=== PATIENT | female | born 1985 | race Caucasian/White ===

== ENCOUNTER 2022-05-04 10:26 | Outpatient (CLI) | payer BC, MEDICAID, SELFPAY ==
--- NOTE | 2022-05-04 10:46 | ECG_ITS ---
Measurements Intervals [place] Rate: 67 P: 46 PA: 176 QRS: 51 QRSD: 86 T: 16 QT: 382 QTc: 403 Interpretive Statements SINUS RHYTHM DELAYED PRECORDIAL R/S TRANSITION BASELINE ARTIFACT- II, III, AVL, AVF, V3-V5 BORDERLINE ECG NO PREVIOUS ECG AVAILABLE FOR COMPARISON Electronically Signed On 05-04-2022 13:51:00 CDT by Lorenzo Linares D.O.
== END 2022-05-04 10:27 | disposition home or self-care (01) ==
LOC: ANHSURGERY 10:37
PROVIDERS: PCP Internal Medicine; Visit Provider Orthopaedic Surgery
DX: Z72.0 Tobacco use (principal); Z01.818 Encounter for other preprocedural examination
CPT/HCPCS: 93005

== ENCOUNTER 2022-05-06 01:09 | Day surgery (SDC) | payer BC, MEDICAID, SELFPAY ==
[2022-04-30 10:23] VITALS: BMI 32.2
--- NOTE | 2022-04-30 10:33 | PC.NURSE ---
Report to the Outpatient Waiting Room, entrance under the green pavilion located off [facility], at time 0830_ on date 05/06/22_. OR Time: _1030___. Time changes happen often and if your time is changed the preop area will call you the afternoon before. - You and your visitor will be asked to self-screen and do not enter if you have any COVID symptoms. - Only one visitor and NO children visitors are allowed at this time. - The patient visitor is requested to leave or wait in car when not with patient due to restrictions. - A mask is required within the hospital. Patients may have clear liquids (water, carbonated beverages, clear teas, apple juice) until 3 hours prior to surgery with a maximum of 20 ounces. - No food from midnight until time of surgery - Infants may have breast milk until 4 hours before surgery, infant formula 6 hours prior to surgery. - Children will be allowed to drink immediately following surgery. If applicable, please bring a bottle or sippy cup to assist with drinking. Juice, water, soda, and popsicles are readily available. For infants on formula, please bring formula the day of surgery. Pacifiers are allowed. Take the following medications with a SIP of water the morning of surgery: _INHALER IF NEEDED Medications to discontinue per physician NONE Date to take last dose NONE Please no make-up, nail bulgarian, hairspray, perfume, deodorant, or body powder the day of surgery. No jewelry (including any body piercings) or valuables the day of surgery, leave them at home. Please take a shower or bath the night before, or the morning of, surgery with an antibacterial soap. Wear comfortable, loose fitting clothing. Children are encouraged to wear pajamas. - Jewelry must be removed prior to entering the operating room. Rings and piercings that are not removed may be cut off. - The hospital will not accept responsibility for valuables. - Please leave all valuables, including medications, at home the day of surgery. If you are going home after surgery, a licensed racecar driver must drive you home. - NO public transportation without another adult. - We recommend that an adult stay with you for 24 hours following discharge. - We also recommend that you do not drive, make important decision, drink alcoholic beverages, or take any drugs that were not prescribed by your health care provider for at least 24 hours after your discharge time. For Pediatric surgeries, we recommend two adults accompany the child home (only one inside the building at this time). Follow any additional instructions given to you from your surgeon. If you or anyone in your household have experienced Covid symptoms in the past week, please notify your surgeon or the nurse liaison at the phone number below for possible testing. Telephone instructions given to _PATIENT___and asked if any additional questions and then verbalized understanding. Patient advised to call surgeon office or pre surgery nurse liaison [phone] if any additional questions.
--- NOTE | 2022-05-04 13:13 | PM.IMHP ---
H&P: HPI History of Present Illness Date/Time: 05/04/22 13:13 Chief Complaint: chief complaint is left 1st dorsal compartment pain due to de Quervain tenosynovitis left wrist. The patient is a 36-year-old female who presents with an ongoing chronic history of pain in the left 1st dorsal compartment of the wrist. Patient has pain with gripping or grasping or trying to do anything heavy repetitive with the arm. She has pain and tenderness in the 1st dorsal compartment she does significant heavy lifting and repetitive motion at her job which aggravates her symptoms. Denies any loss of motion no numbness or tingling no weakness but has significant pain with almost any activity. X-rays are unremarkable clearly she however has de Quervain tenosynovitis unrelieved by conservative measures including oral anti-inflammatories cortisone injection and bracing. Patient at this point is discussed further treatment options in detail Dr. Lorenzo she has failed conservative measures and would like to proceed with a surgical release of the 1st dorsal compartment of the left wrist. Review of Systems Review of Systems: Ten point review of systems otherwise negative PMFSH Social History Social History Smoking packs per day: 1 Smoking cigarettes per day: 20.0 Years smoked: 20 Smoking pack-years: 20.00 Smoking status: Current every day smoker Tobacco type: cigarettes Alcohol intake: current Alcohol use details: 3-4 PER YEAR Substance use: never Meds Home Medications and Allergies Home Medications Medication Instructions Recorded Confirmed Type albuterol sulfate 90 mcg/actuation 2 puff inhalation PRN PRN 04/30/22 04/30/22 History aerosol inhaler Shortness Of Breath Allergies Allergy/AdvReac Type Severity Reaction Status Date / Time amoxicillin [From Augmentin] Allergy Hives Verified 04/30/22 10:21 clavulanic acid Allergy Hives Verified 04/30/22 10:21 [From Augmentin] Fish Containing Products Allergy Hives Verified 04/30/22 10:19 latex Allergy Rash Verified 04/30/22 10:18 menthol [From Icy Hot] Allergy Redness of Verified 04/30/22 10:22 Skin methyl salicylate Allergy Redness of Verified 04/30/22 10:22 [From Icy Hot] Skin Exam Narrative: on exam the patient is noted be a well-developed well-nourished female in no acute distress alert oriented x3. Normal mood and affect. The patient is noted to have hearing and vision that are intact. Respiratory is good no distress. Pulse regular rate and rhythm. Abdomen benign. Extremities showed the patient's left wrist to be exquisitely tender the 1st dorsal compartment with a positive Steve's test. Full range of motion hand wrist and fingers are noted has a little puffiness in the 1st dorsal compartment at the radial styloid. Strength is 5 5 except limited by her symptoms. No neurovascular deficits are noted. Skin is intact without rashes or lesions. Central nervous system within normal limits. X-rays are unremarkable. Assessment and Plan Assessment and plan (1) De Quervain's tenosynovitis, left: Code(s): M65.4 - Radial styloid tenosynovitis [de Quervain] Status: Acute Assessment and Plan: by history and exam the patient is noted to have chronic de Quervain tenosynovitis left wrist. The patient has discussed risks benefits limitations and alternatives to surgery in great detail with Dr. Lorenzo, the patient is now ready to proceed with a surgical release of the 1st dorsal compartment of the left wrist. The patient is scheduled to undergo surgery 05/06/2022 at [facility] with Dr. Lorenzo. The patient voiced understanding and agrees with the above plan.
[2022-05-06] VITALS (9 sets, daily range): BP systolic 106–135; BP diastolic 64–102; PULSE 60–82; RESP 12–18; TEMP 36.2–36.6; O2SAT 93–98
--- NOTE | 2022-05-06 07:11 | WPDHPUPDATE1 ---
History and Physical Update Update Date/Time: 05/06/22 07:11 History and Physical has been reviewed, including an updated exam of the patient. There are NO changes in the patient's condition. Risks, benefits, and alternatives have been discussed and questions answered. Patient agrees to proceed with procedure.
[2022-05-06] MEDS: ACETAMINOPHEN 500 MG TABLET 1000 MG PO (09:28)
[2022-05-06] MEDS: LACTATED RINGERS 1,000 ML 30 ML IV CONT ×2 (09:28→11:43)
[2022-05-06] MEDS: KETOROLAC 15 MG/ML VIAL (*BKC) IV PUSH (09:28)
--- NOTE | 2022-05-06 09:38 | WPDANESEPPF ---
Anes - Initial Pre Proc Eval Procedure: Operation Date: 05/06/22 10:30 Proposed Procedures p Release Left Forearm First Dorsal Compartment - Golden Lorenzo MD Date/Time: 05/06/22 09:38 Surgeon: Golden Lorenzo MD Pre Op Diagnosis: left DeQuervains Patient Data Age: 36 Gender: F Height: 1.57 m Weight: 86.8 kg Last Vital Signs Temp 36.2 C L 05/06/22 09:07 Pulse 82 05/06/22 09:07 Resp 18 05/06/22 09:07 BP 135/102 H 05/06/22 09:07 Pulse Ox 98 05/06/22 09:07 Allergies Allergy/AdvReac Type Severity Reaction Status Date / Time amoxicillin [From Augmentin] Allergy Hives Verified 05/06/22 09:06 clavulanic acid Allergy Hives Verified 05/06/22 09:06 [From Augmentin] Fish Containing Products Allergy Hives Verified 05/06/22 09:06 latex Allergy Rash Verified 05/06/22 09:06 menthol [From Icy Hot] Allergy Redness of Verified 05/06/22 09:06 Skin methyl salicylate Allergy Redness of Verified 05/06/22 09:06 [From Icy Hot] Skin Home Medications Medication Instructions Recorded Confirmed Type albuterol sulfate 90 mcg/actuation 2 puff inhalation PRN PRN 04/30/22 05/06/22 History aerosol inhaler Shortness Of Breath Patient hx anesthesia problems: none Family hx anesthesia problems: none Results Review: All pre-operative results and documents have been reviewed as part of the pre-operative evaluation. [facility] Past Medical History Medical History (Updated 05/06/22 @ 09:38 by Abe Merino MD) Asthma Obesity Social History Social History Smoking packs per day: 1 Smoking cigarettes per day: 20.0 Years smoked: 20 Smoking pack-years: 20.00 Smoking status: Current every day smoker Tobacco type: cigarettes Alcohol intake: current Alcohol use details: 3-4 PER YEAR Substance use: never Living arrangements: alone Anes - Eval Final PreProcedure Day of Procedure 05/06/22 09:38 Patient weight: obese Heart: regular rate and rhythm Lungs: clear to auscultation Airway: Mallampati scale class II Neurological: alert and oriented Last oral intake: >/= 8 hours ASA classification: II Emergent: no Anesthetic plan: proceed Anesthesia type and monitoring: general LMA and standard monitoring Results Review: All pre-operative results and documents have been reviewed as part of the pre-operative evaluation. Informed Consent: The patient's anesthetic plan and its attendant risks and benefits were discussed with the patient/family/POA. Questions were solicited and answers provided to the satisfaction of the patient/family/POA.
[2022-05-06] MEDS: ceFAZolin 2 GM/D5W 50 ML 2 GM/50 ML BAG IVPB (10:06)
[2022-05-06] MEDS: LIDOCAINE HCL 1% PF 30 ML VIAL 10 ML INFILTRATE (10:43)
--- NOTE | 2022-05-06 11:00 | P.OP_ITS ---
Procedure Note - Detailed Date of Procedure 05/06/22 Pre-op Diagnosis left DeQuervains Post-op Diagnosis Same Procedure Performed Release 1st dorsal compartment LEFT Surgeon Golden Lorenzo MD Anesthesia General Indications Pain 1st dorsal compartment and failure of conservative treatment Description of Procedure Patient brought to operating room 7. A general anesthetic was administered. Sterile prep and drape of the left arm out. The site was identified and aligned a transverse incision made over the 1st dorsal compartment. Dissection bluntly carried down through the fascia the nataliia was identified and released under direct vision freeing both the abductor as well as extensor tendons. At this point is full excursion without any impingement. The wound was irrigated and closed with 2-0 Vicryl and 3-0 Prolene. Sterile dressing applied patient t olerated procedure well. Estimated Blood Loss 5 Condition Stable
== END 2022-05-06 12:36 | disposition home or self-care (01) ==
PROVIDERS: PCP Internal Medicine; Visit Provider Orthopaedic Surgery
PROC: (CPT 25000; principal; 2022-05-06 10:30)
DX: M65.4 Radial styloid tenosynovitis [de Quervain] (principal); F17.210 Nicotine dependence, cigarettes, uncomplicated; E66.9 Obesity, unspecified; Z68.35 Body mass index [BMI] 35.0-35.9, adult; Z79.51 Long term (current) use of inhaled steroids
CPT/HCPCS: 25000; A9270; J0690; J1100; J1885; J2250; J2405; J2704; J3010; J7120

== ENCOUNTER 2023-05-10 17:22 | Emergency (ER) | payer BC, MEDICAID, SELFPAY ==
--- NOTE | ~2023-05-10 | CT_ITS ---
EXAMINATION: CT abdomen pelvis w con DATE: 05/10/2023 21:21 INDICATION: abdominal pain, nausea TECHNIQUE: Computed tomography (CT) of the abdomen and pelvis was performed with 100 mL Omnipaque-350 intravenous contrast, in a late portal venous. Automated exposure control and iterative reconstructi on technique were employed. The dose-length product was 985.53 mGy-cm. COMPARISON: None. FINDINGS: Lower thorax: Unremarkable Liver: Normal. Biliary/Gallbladder: Gallbladder is normal. No bile duct dilation. Pancreas: No mass or duct dilation. Spleen: Normal. Adrenals: Nodular appearing left adrenal gland with indeterminate density 8 mm 12 masses. No follow-u p necessary for a sub-1 cm adrenal masses. Kidneys: No suspicious mass, obstructing stone, or hydronephrosis. GI tract: No small or large bowel dilation. Normal appendix. Mesentery/Peritoneum: No ascites, mass, or free air. Retroperitoneum: No mass. Pelvis: Pelvic organs are within normal limits. IUD in position. Soft Tissues: Soft tissues and body wall unremarkable. Bones: No acute osseous finding. IMPRESSION: No acute abdominal pelvic process detected. Indeterminate density left adrenal mass, probably benign, consider 12 month follow-up adrenal CT. Adr enal CT recommended now there is a history of cancer. Reviewed, dictated and finalized at location K. IMPRESSION: No acute abdominal pelvic process detected. Indeterminate density left adrenal mass, probably benign, consider 12 month fol low-up adrenal CT. Adrenal CT recommended now there is a history of cancer.
[2023-05-10 17:51] VITALS: BP 132/89; PULSE 82; RESP 17; TEMP 36.6; O2SAT 99
[2023-05-10 18:07] LABS: Basophils Absolute Auto 0.1 K/mm3 (0.0-0.1); Basophils Percent Auto 0.4 % (0.2-1.2); Eosinophils Absolute Auto 0.2 K/mm3 (0-0.3); Eosinophils Percent Auto 1.5 % (0-4.4); Hematocrit 42.5 % (37.0-47.0); Hemoglobin 13.6 g/dL (12.0-15.0); Immature Granulocyte Absolute 0.04 K/mm3 (0.00-0.031); Immature Granulocyte Percent A 0.3 % (0-0.5); Lymphocytes Absolute Auto 4.49 K/mm3 (0.9-3.2); Lymphocytes Percent Auto 38.8 % (18.3-44.2); Mean Corpuscular Hemoglobin 28.2 pg (26-34); Mean Corpuscular Volume 88.2 fl (80-100); Mean Platelet Volume 9.3 fl (7.4-10.4); Monocytes Absolute Auto 0.7 K/mm3 (0.1-0.6); Monocytes Percent Auto 5.6 % (2.6-8.5); Neutrophils Absolute Auto 6.2 K/mm3 (1.3-6.7); Neutrophils Percent Auto 53.4 % (45.5-73.1); Platelet Count Result 288 k/mm3 (150-375); Red Blood Count 4.82 M/mm3 (4.2-5.4); Red Cell Distribution Width 14.8 % (11.5-14.5); White Blood Count 11.6 K/mm3 (4.5-10.0)
[2023-05-10 18:25] LABS: Alanine Aminotransferase 20 U/L (6-35); Albumin Level 4.5 g/dL (3.5-5.1); Alkaline Phosphatase 83 U/L (38-126); Anion Gap 7 mmol/L (8-16); Aspartate Amino Transferase 20 U/L (14-36); Bilirubin,Total 0.4 mg/dL (0.2-1.3); Blood Urea Nitrogen 9 mg/dL (7-17); Calcium 8.9 mg/dL (8.4-10.2); Carbon Dioxide 24 mmol/L (22-30); Chloride 107 mmol/L (98-107); Estimated CRCL calculation 89 ml/min; Estimated Glomerular Filt Rate > 60; Glucose 80 mg/dL (65-110); Lipase 48 U/L (23-300); Potassium 3.8 mmol/L (3.4-5.0); Sodium 138 mmol/L (137-145)
[2023-05-10 18:31] LABS: Atypical Lymphocytes Present; Platelet Estimate Adequate (Adequate); Schistocytes None Seen (NORMAL)
[2023-05-10 19:59] VITALS: BP 152/92; PULSE 88; RESP 17; TEMP 36.5; O2SAT 98
[2023-05-10] MEDS: PROCHLORPERAZINE EDISYLATE 10 MG/2 ML VIAL IV PUSH (20:57)
[2023-05-10] MEDS: SODIUM CHLORIDE 0.9% IV 1,000 ML 999 ML IV CONT (20:57)
[2023-05-10 21:05] LABS: Appearance Urine Turbid (Clear); Bacteria Urine 4+ /hpf; Bilirubin Urine Negative (Negative); Blood Urine 3+ (Negative); Color Urine Dark Yellow (Yellow); Glucose Urine UA Negative (Negative); Ketones Urine Trace mg/dL (Negative); Leukocyte Esterase Ur 1+ LEU/UL (Negative); Need Manual Microscopic Reviewed; Nitrate Urine Negative (Negative); Protein Urine Trace mg/dL (Negative); Squamous Epithelial Cell Urine Many /hpf (Few); WBC Urine 21-50 /hpf
[2023-05-10 21:07] LABS: Add Urine Microscopic? YES
--- NOTE | 2023-05-10 21:29 | ED.GENADULT ---
HPI - General Adult General Chief complaint: Nausea/Vomiting/Diarrhea Stated complaint: nausea x 2 weeks Time Seen by Provider: 05/10/23 20:21 History of Present Illness HPI narrative: Patient 37-year-old female who presents the emergency department with chief complaint of nausea patient reports that about a month ago she started having episodes of continual nausea that was affecting her ability to eat patient reports she was seen in urgent care given a prescription for Zofran but that made her have constipation and patient discontinued it patient reports that about 2 weeks ago the nausea started again and today it was worse the patient reports no actual vomiting reports she had normal bowel movements reports that she does have an IUD patient reports that she has had no urinary symptoms reports that she has discomfort in the lower portions of her abdomen. Patient reports no prior surgical history of the abdomen Related Data Home Medications Medication Instructions Recorded Confirmed albuterol sulfate 90 mcg/actuation 2 puff inhalation PRN PRN 04/30/22 05/06/22 aerosol inhaler Shortness Of Breath Allergies Allergy/AdvReac Type Severity Reaction Status Date / Time amoxicillin [From Augmentin] Allergy Hives Verified 05/06/22 09:06 clavulanic acid Allergy Hives Verified 05/06/22 09:06 [From Augmentin] Fish Containing Products Allergy Hives Verified 05/06/22 09:06 latex Allergy Rash Verified 05/06/22 09:06 menthol [From Icy Hot] Allergy Redness of Verified 05/06/22 09:06 Skin methyl salicylate Allergy Redness of Verified 05/06/22 09:06 [From Icy Hot] Skin Review of Systems Review of Systems: A 10 system review of systems was completed on the patient and is negative except for what is stated in the HPI. Nursing and ancillary documentation was reviewed. PMFSH Past Medical History Medical History Asthma Obesity Social History Social History Smoking packs per day: 1 Smoking cigarettes per day: 20.0 Years smoked: 20 Smoking pack-years: 20.00 Smoking status: Current every day smoker Tobacco type: cigarettes Alcohol intake: current Alcohol use details: 3-4 PER YEAR Substance use: never Living arrangements: alone Exam Narrative: GENERAL: Well-appearing, well-nourished, and in no acute distress. HEAD: Normocephalic, atraumatic. EYES: PERRLA and EOMI. ENT: Nares clear, no rhinorrhea or epistaxis. Mucous membranes moist. NECK: Supple. CHEST: Clear to auscultation. No respiratory distress. HEART: Regular rate and rhythm. No murmur heard. Normal peripheral pulses. ABDOMEN: Soft, tender to palpation in the lower quadrants of the abdomen, nondistended, normal active bowel sounds. EXTREMITIES: Normal range of motion. No edema. SKIN: Warm, dry, no rash. NEURO: No focal deficits. Alert and oriented x3. PSYCH: Normal mood and affect. Course Vital Signs Vital signs: Vital Signs Temperature 36.6 C 05/10/23 17:51 Pulse Rate 82 05/10/23 17:51 Respiratory Rate 17 05/10/23 17:51 Blood Pressure 132/89 05/10/23 17:51 Pulse Oximetry 99 05/10/23 17:51 Oxygen Delivery Room Air 05/10/23 17:51 Temperature 36.5 C 05/10/23 19:59 Pulse Rate 88 05/10/23 19:59 Respiratory Rate 17 05/10/23 19:59 Blood Pressure 152/92 H 05/10/23 19:59 Pulse Oximetry 98 05/10/23 19:59 Oxygen Delivery Room Air 05/10/23 17:51 Medical Decision Making [facility] Narrative Medical decision making narrative: Differential diagnosis includes ectopic, UTI, intra-abdominal infection, diverticulitis, colitis, appendicitis, cholecystitis. Laboratory studies were obtained on the patient which showed a CBC with a white count of 11.6 CMP was within normal limits lipase was normal urinalysis showed 21-[address] scan showed no acute abno
[2023-05-10 22:52] VITALS: BP 136/79; PULSE 79; RESP 18; TEMP 36.8; O2SAT 100
== END 2023-05-10 22:53 | disposition home or self-care (01) ==
PROVIDERS: Emergency Medicine; Emergency Provider Emergency Medicine; PCP Internal Medicine
DX: N39.0 Urinary tract infection, site not specified (principal); R11.2 Nausea with vomiting, unspecified; E27.9 Disorder of adrenal gland, unspecified; F17.210 Nicotine dependence, cigarettes, uncomplicated; J45.909 Unspecified asthma, uncomplicated
CPT/HCPCS: 36415; 74177; 80053; 81001; 81025; 83690; 85025; 87086; 87088; 96361; 96374; 99284; J0780; J7030; Q9967

== ENCOUNTER 2025-06-15 13:17 | Outpatient (CLI) | payer OTHER, SELFPAY ==
--- OUTSIDE RECORDS SUMMARY | 2024-01-29 16:30 | XMS_ITS ---
Author Organization [facility] [employer] [place] ([address]) Address [address] [place] [address] Care Team Providers Care Flat Bed Knitter Name Role Phone DidiTomas cunningham Primary Care Provider Fletcher Angel Unavailable [phone] [facility], Provider Unavailable Unavailab le Allergies Allergen (clinical drug ingredient) Drug/Non Drug Allergy documented on EMR Reaction Allergy Type Onset Date Status CLAVVLANIC ACID (uncoded) Unknown Allergy Active REASON FOR VISIT [facility] Conversion Encounter Medications Medication SIG (Take, Route, Frequency, Duration) Notes Start Date End Date Status Advair HFA 115-21 MCG/ACT 2 puff(s) inhaled 2 times a day; Duration: 30 days 10/12/2023 Active Fluticasone Propionate 50 MCG/ACT 2 spray(s) in each nostril BID; Duration: 30 day(s) 10/12/2023 Active AEROCHAMBER MDI SPACER - MOUTHPIECE (ADULT) N/A DIRECTED PO PER ASTHMA ACTION PLAN; Duration: 30 DAY(S) *Please review for potential replacement for e-prescription and drug interaction check* 10/12/2023 Active ALBUTEROL (EQV-PROAIR HFA) 90 MCG/INH 2 PUFF(S) INHALED EVERY 6 HOURS; Duration: 30 DAYS *Please review for potential replacement for e-prescription and drug interaction check* 10/12/2023 Active Encounters Encounter Location Date Provider Diagnosis [facility] [address] [place] [id number] 01/29/2024 Provider [facility] Hypertrophy of nasal turbinates J34.3 and Wheezing R06.2 Assessments Encounter Date Diagnosis (ICD Code) Assessment Notes Treatment Notes Treatment Clinical Notes Section Notes 01/29/2024 Hypertrophy of nasal turbinates (ICD-10 - J34.3) 01/29/2024 Wheezing (ICD-10 - R06.2) Plan Of Treatment Medication Medication Name Sig Start Date Stop Date Notes Advair HFA 115-21 MCG/ACT 2 puff(s) inhaled 2 times a day; Duration: 30 days 10/12/2023 Fluticasone Propionate 50 MCG/ACT 2 spray(s) in each nostril BID; Duration: 30 day(s) 10/12/2023 AEROCHAMBER MDI SPACER - MOUTHPIECE (ADULT) N/A DIRECTED PO PER ASTHMA ACTION PLAN; Duration: 30 DAY(S) 10/12/2023 *Please review for potential replacement for e-prescription and drug interaction check* ALBUTEROL (EQV-PROAIR HFA) 90 MCG/INH 2 PUFF(S) INHALED EVERY 6 HOURS; Duration: 30 DAYS 10/12/2023 *Please review for potential replacement for e-prescription and drug interaction check* Progress Notes * Dat OROOB:1984 (39 yo F)Acc No.[id number]:01/29/2024 Patient: Bernadine TEJEDA Provider: Toan Jeffrey :1985 A ge:38 Y S ex:Female Date:01/29/2024 Phone: Address:[address] [place], [place] [id number] Pcp:Tomas Tolbert Subjective: * Chief Complaints: * 1 . [facility] Encounter. * Medical History: * Allergies: C LAVVLANIC ACID. Objective: * Vitals: Assessment: * Assessment: 1. H ypertrophy of nasal turbinates - J34.3 2 . W heezing - R06.2 ? Plan: * Treatment: 2. W heezing Start Advair HFA Aerosol, 115-21 MCG/ACT, 2 puff(s), inhaled, 2 times a day, 30 days, 1, Refills 1;?Start ALBUTEROL (EQV-PROAIR HFA) AEROSOL, 90 MCG/INH, 2 PUFF(S), INHALED, EVERY 6 HOURS, 30 DAYS, 1, Refills 0, Notes to Pharmacist: *Please review for potential replacement for e-prescription and drug interaction check*; S tart AEROCHAMBER MDI SPACER - MOUTHPIECE (ADULT) SPACER FOR MDI USE, N/A, DIRECTED, PO, PER ASTHMA ACTION PLAN, 30 DAY(S), 1, Refills 11, Notes to Pharmacist: *Please review for potential replacement for e-prescription and drug interaction check*. * Billing Information: * Visit Code: * Procedure Codes: * Electronic signature of Prov demetrius MACHADO-Migration on 06/15/2025 at 01:24 PM CDT Sign off status: Pending * Provider: Toan pavon Migration Date: 0 01/29/2024 Generated for [place] mares/[place] on: 1 01:24 PM CDT
--- NOTE | ~2025-06-15 | MMUS_ITS ---
EXAMINATION: MM diagnostic domitila BI w juan c, US breast BI complete HISTORY: Breast trauma TECHNIQUE: Additional 3-D tomosynthesis images of the breasts were performed and synthetic 2-D images were generated. CAD analysis was submitted and interpreted. High resolution bilateral complete breast ultrasound was performed. COMPARISON: None BREAST PARENCHYMAL COMPOSITION: Dense: The breasts are heterogeneously dense, which may obscure small masses FINDINGS: MAMMOGRAPHIC FINDINGS: There are no suspicious masses, calcifications or architectural distortion in either breast to suggest malignancy. ULTRASOUND: Complete US of all 4 quadrants of the breast/s and retroareolar region was reviewed. Right breast: Normal heterogeneous echotexture without focal solid or cystic mass. Left Breast: At 4:00, 4 cm from the nipple there is a subcutaneous predominately hyperechoic mass with possible internal fluid measuring 1.7 x 1.5 x 0.5 cm, likely hematoma. There is internal vascularity. IMPRESSION: 1. Probable benign hyperechoic mass of the left breast subcutaneously at 4:00, 4 cm from the nipple, most likely hematoma measuring 1.7 cm. No evidence for malignancy in the right breast. 2. Recommend 6 month follow-up Limited left breast ultrasound. BI-RADS category 3, probably benign findings. Reviewed, dictated and finalized at location B. IMPRESSION: 1. Probable benign hyperechoic mass of the left breast subcutaneously at 4:00, 4 cm from the nipple, most likely hematoma measuring 1.7 cm. No evidence for ma lignancy in the right breast. 2. Recommend 6 month follow-up Limited left breast ultrasound. BI-RADS category 3, probably benign findings.
--- OUTSIDE RECORDS SUMMARY | 2025-06-15 13:25 | XMS_ITS | Clinical Summary ---
Author Organization [facility] Address [address] 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 This disclosure is being madepursuant to the Care Everywhere program and may not contain all information available regarding this patient. Last updated 18.[facility] Allergies Active Allergy Reactions Criticality Noted Date Comments Amoxicillin-Pot Clavulanate Rash Medium 02/28/20 19 Medications * Be aware that medications may not be up to date on this document. Alwaysverify current medications with the patient. 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 Gender Identity Not on file Sexual Orientation Not on file Last Filed Vital Signs Vital Sign Reading Time Taken Comments Blood Pressure 110/70 02/24/2020 2:28 PM CDT Pulse 92 02/24/2020 2:28 PM CDT Temperature 36.9 C (98.4 F) 02/24/2020 2:28 PM CDT Respiratory Rate 19 02/24/2020 2:28 PM CDT Oxygen Saturation 98% 02/24/2020 2:28 PM CDT Inhaled Oxygen Concentration - - Weight 77.1 kg (170 lb) 02/24/2020 2:28 PM CDT Height 157.5 cm (5' 2) 02/24/2020 2:28 PM CDT Body Mass Index 31.09 02/24/2020 2:28 PM CDT Plan of Treatment Health Maintenance Due Date Last Done Comments HIV SCREENING 2002 HEPATITIS C SCREENING 07/11/2005 DTAP/TDAP/TD VACCINES (1 - Tdap) 2006 HEPATITIS B VACCINE (1 of 3 - 19+ 3-dose series) 2006 HPV VACCINE (1 - 3-dose SCDM series) 2014 DEPRESSION SCREENING 08/16/2024 COVID-19 VACCINE (1 - 2023-2 5 season) 2025 INFLUENZA VACCINE (#1) 2025 ZOSTER VACCINE (1 of 2) 2037 HIB VACCINE Aged Out No longer eligi ble based on patient's age to complete this topic MENINGOCOCCAL (Group B) VACC INE SHARED DECISION-MAKING Aged Out No longer eligibl e based on patient's age to complete this topic MENINGOCOCCAL GROUPS A/C/Y/W VACCINE Aged Out No longer eligible b ased on patient's age to complete this topic PNEUMOCOCCAL VACCINE Aged Out No long er eligible based on patient's age to complete this topic Medical Devices Implanted Type Area Emt Driver Device Identifier Shelf Expiration Date Model / Serial / Lot Other (Type Not Listed) Other (Type not listed) Description:IUD Myrena safe for 3T Insurance [employer] GENER[employer] MEDICAID [employer] [place] [employer] [place] * Guarantor: [id number] Account Type Relation to Patient Date of Phone Billing Address Workers Comp Employer Care Teams 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
--- OUTSIDE RECORDS SUMMARY | 2025-06-15 13:25 | XMS_ITS | Patient Health Record ---
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 Name Role Phone Tomas Tolbert Primary Care Provider UnavailFletcher Suazo Unavailable [phone] Allergies Allergen (clinical drug ingredient) Drug/Non Drug Allergy documented on EMR Reaction Allergy Type Onset Date Status CLAVVLANIC ACID (uncoded) Unknown Allergy Active Reason For Referral No Information Medications Medication SIG (Take, Route, Frequency, Duration) Notes Start Date End Date Status ADVAIR HFA CFC free 115 mcg-21 mcg/inh 2 puff(s) inhaled 2 times a day; Duration: 30 days 10/12/2023 Active FLUTICASONE NASAL 50 mcg/inh 2 spray(s) in each nostril BID; Duration: 30 day(s) 10/12/2023 Active Advair HFA 115-21 MCG/ACT 2 puff(s) inhaled 2 times a day; Duration: 30 days 10/12/2023 Active Albuterol Sulfate HFA 108 (90 Base) MCG/ACT 2 puffs Inhalation every 6 hrs; Duration: 30 days 05/01/2024 Active Fluticasone Propionate 50 MCG/ACT 2 spray(s) in each nostril BID; Duration: 30 day(s) 10/12/2023 Active AEROCHAMBER MDI SPACER - MOUTHPIECE (ADULT) N/A DIRECTED PO PER ASTHMA ACTION PLAN; Duration: 30 DAY(S) *Please review for potential replacement for e-prescription and drug interaction check* 10/12/2023 Active Social History Tobacco Use: Social History Observation Description Date Details (start date - stop date) Current Smoker NA - NA Smoking Smart Form: Question Answer Notes Are you a: current smoker How many cigarettes a day do you smoke? 07-05 Problems Problem Type SNOMED Code ICD Code Onset Dates Problem Status W/U Status Risk Notes Problem Wheezing (21781132) Wheezing (R06.2) Active confirmed Problem Wheezing (08931376) Wheezing (R06.2) Active confirmed Problem Chronic rhinitis (23967103) Chronic rhinitis (J31.0) Active confirmed Problem Chronic rhinitis (95186275) Chronic rhinitis (J31.0) Active confirmed Problem Hypertrophy of nasal turbinates (70819119) Hypertrophy of nasal turbinates (J34.3) Active confirmed Problem Eruption of skin (400055660) Rash and other nonspecific skin eruption (R21) Active confirmed Problem Allergy to penicillin (47283282) Allergy status to penicillin (Z88.0) Active confirmed Plan Of Treatment No Information Insurance Providers Payer Name Payer Address Payer Phone Subscriber Number Group Number Insured Name Patient Relationship to Insured Coverage Start Date Coverage End Date [facility] [address] [address] [place], [place] [phone] [id number] Bernadine Baltazar Self - patient is the insured 4
== END 2025-06-15 13:18 | disposition home or self-care (01) ==
LOC: ANHFOHIMG 13:19
PROVIDERS: PCP Obstetrics & Gynecology; Visit Provider Obstetrics & Gynecology
DX: N63.10 Unspecified lump in the right breast, unspecified quadrant (principal); L53.9 Erythematous condition, unspecified
CPT/HCPCS: 76641; 77062; 77066; G0279